=== PATIENT | female | born 1985 | race Caucasian/White ===

== ENCOUNTER 2023-06-13 03:47 | Emergency (ER) | payer OTHER ==
[~2023-06-13] VITALS: Ht 175.3 cm; Wt 70.4 kg
[~2023-06-13 03:47] MED LIST: ALPR2TAB2 PO
[2023-06-13 03:54] VITALS: BP 110/72; PULSE 70; RESP 18; O2SAT 98
[2023-06-13 04:45] LABS: Basophils # (auto) 0 10 ^3/uL (0-0.2); Basophils % (auto) 0.6 % (0.0-2.0); Eosinophils # (auto) 0.1 10 ^3/uL (0-0.8); Hematocrit 34.9 % (36.0-46.0); Hemoglobin 11.4 g/dL (12.2-16.2); Lymphocytes # (auto) 1.9 10 ^3/uL (0.4-5.4); Lymphocytes % (auto) 23.6 % (10.0-50.0); Mean Corpuscular Hemoglobin 28.8 pg (28.0-32.0); Mean Corpuscular Hgb Conc. 32.8 g/dL (32.0-36.0); Mean Corpuscular Volume 88.1 fL (80.0-100.0); Monocytes # (auto) 0.5 10 ^3/uL (0-1.3); Monocytes % (auto) 6.2 % (0.0-12.0); Neutrophils # (auto) 5.4 10 ^3/uL (1.6-8.6); Neutrophils % (auto) 68.6 % (37.0-80.0); Nucleated Red Blood Cells % 0.1 %; Red Blood Cells 3.97 10^6/uL (4.0-5.20); Red Cell Distribution Width 13.9 % (11.8-14.3); White Blood Cell 7.9 10^3/uL (4.4-10.8)
[2023-06-13 05:02] LABS: Albumin 3.6 g/dL (3.4-5.0); Calcium 8.9 mg/dL (8.5-10.1)
[2023-06-13 05:06] LABS: BUN/Creatinine Ratio 14.9 (10.0-20.0); Bilirubin, Total 0.4 mg/dL (0.2-1.0); Total Protein 7.4 g/dL (6.4-8.2)
[2023-06-13] MEDS ORDERED: CIPR-173 PO (05:10)
[2023-06-13] MEDS ORDERED: PERCOT PO (05:10)
[2023-06-13] MEDS ORDERED: ZOFR4T PO (05:10)
[2023-06-13 05:13] LABS: Urine Bacteria FEW /hpf (None Seen); Urine Blood Negative /uL (Negative); Urine Hyaline Cast FEW /lpf (0 - 2); Urine Mucus FEW (None Seen); Urine Specific Gravity 1.023 (1.001-1.035); Urine WBC 1 /hpf (0 - 5)
== END 2023-06-13 07:23 | disposition left against medical advice (07) ==
LOC: ER 03:47
DX: K29.70 Gastritis, unspecified, without bleeding (principal); Z79.1 Long term (current) use of non-steroidal anti-inflammatories (NSAID); Z79.899 Other long term (current) drug therapy
CPT/HCPCS: 36415; 80053; 81001; 83690; 85025

== ENCOUNTER 2023-07-16 21:25 | Emergency (ER) | payer OTHER ==
[~2023-07-16] VITALS: Ht 175.3 cm; Wt 160.0 kg
[~2023-07-16 21:25] MED LIST changes: +CIPR-173 PO; +PERCOT PO; +ZOFR4T PO
[2023-07-16 23:22] VITALS: BP 94/62; PULSE 80; RESP 18; O2SAT 98
[2023-07-17] MEDS ORDERED: KETOROLAC TROMETH 60MG/2ML VIAL IM ONE (01:00)
== END 2023-07-17 01:06 | disposition home or self-care (01) ==
LOC: ER 21:25
DX: R09.1 Pleurisy (principal); R06.02 Shortness of breath
CPT/HCPCS: 71045